=== PATIENT | female | born 2005 | race Caucasian/White ===

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

== ENCOUNTER 2025-05-04 11:57 | Outpatient (CLI) | payer OTHER, SELFPAY ==
--- OUTSIDE RECORDS SUMMARY | 2025-05-04 12:00 | XMS_ITS | Clinical Summary ---
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 Role Phone Unavailable Primary Care Provider Unavailabl e Social History Tobacco Use Types Packs/Day Years Used Date Smoking Tobacco: Never Alcohol Use Standard Drinks/Week Comments No 0 (1 standard drink = 0.6 oz pur e alcohol) Comments Unknown Sex and Gender Information Value Date Recorded Sex Assigned at Not on file Legal Sex Female 6:05 PM EDT Gender Identity Not on file Sexual Orientation Not on file Last Filed Vital Signs Vital Sign Reading Time Taken Comments Blood Pressure - - Pulse - - Temperature - - Respiratory Rate - - Oxygen Saturation - - Inhaled Oxygen Concentration - - Weight 21.3 kg (47 lb) 03/15/2016 10:14 AM EDT Height 119.4 cm (3' 11 ) 03/15/2016 10:14 AM EDT Body Mass Index 14.96 03/15/2016 10:14 AM EDT Plan of Treatment Not on file
--- OUTSIDE RECORDS SUMMARY | 2025-05-04 12:00 | XMS_ITS | Clinical Summary ---
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 Name Role Phone Evelyn Washburn Donell BULL Primary Care Provider [phone] Allergies No known active allergies Medications No known medications Social History Tobacco Use Types Packs/Day Years Used Date Smoking Tobacco: Never Assessed Comments Unknown Sex and Gender Information Value Date Recorded Sex Assigned at Not on file Legal Sex Female 4:01 PM EST Gender Identity Not on file Sexual Orientation Not on file Last Filed Vital Signs Vital Sign Reading Time Taken Comments Blood Pressure 105/86 06/13/2016 4:03 PM EST Pulse 106 06/13/2016 4:03 PM EST Temperature 36.9 C (98.4 F) 06/13/2016 4:03 PM EST Respiratory Rate 20 06/13/2016 5:54 PM EST Oxygen Saturation 99% 06/13/2016 5:54 PM EST Inhaled Oxygen Concentration - - Weight 28.1 kg (62 lb) 06/13/2016 4:03 PM EST Height - - Body Mass Index - - Plan of Treatment Health Maintenance Due Date Last Done Comments Annual Wellness Exam 2008 HPV (1 - 3-dose series) 2020 Meningococcal B Vaccine (1 o f 2 - Standard) 2021 DTaP/TDaP/Td (1 - Tdap) 2024 Hepatitis B Vaccine (1 of 3 - 19+ 3-dose series) 2024 COVID-19 Vaccine ( - 2023-2 5 season) 2025 Influenza Vaccine (#1) 2025 Pneumococcal Vaccine 0-49 Aged Out No longer eligible based on patient's age to complete this topic Insurance [employer] [place] [id number] MDR MDR ESURANCE AA Care Teams Larry Car Operator Relationship Specialty Start Date End Date Evelyn Washburn APRN [address] [address] PCP - General Nurse Practitioner-Pediatrics 06/13/16
[2025-05-04 12:41] LABS: Hematocrit 41.5 % (37.0-47.0); Hemoglobin 14.7 g/dL (12.2-16.2); Immature Granulocytes % 0.2 %; Mean Corpuscular HGB Conc 35.4 g/dL (31.8-35.4); Mean Corpuscular Hemoglobin 33.3 pg (27.0-31.2); Mean Corpuscular Volume 93.9 fl (81-99); Nucleated Red Blood Cells % 0 %; Platelet Count 319 K/mm3 (142-424); Red Blood Count 4.42 M/mm3 (4.20-5.40); Red Cell Distribution Width-SD 43.9 fL; White Blood Count 8.9 K/mm3 (4.5-13.0)
[2025-05-04 13:24] LABS: Alanine Aminotransferase 17 U/L (12-78); Albumin Level 4.9 g/dl (3.5-5.0); Albumin/Globulin Ratio 1.8 (1.1-1.8); Alkaline Phosphatase 43 U/L (38-126); Anion Gap 16.9 mEq/L (5-15); Aspartate Amino Transferase 28 U/L (14-36); Bilirubin,Total 0.9 mg/dl (0.2-1.3); Blood Urea Nitrogen 10 mg/dl (7-17); Calcium 10.1 mg/dl (8.4-10.2); Carbon Dioxide 25 mmol/L (22.0-30.0); Chloride 101 mmol/L (98-107); Creatinine,Serum 0.70 mg/dl (0.52-1.04); Estimated Glomerular Filt Rate 107 ml/min (>60); GFR (African American) 129 ML/MIN (>60); Globulin 2.8 g/dL (1.3-3.2); Glucose 90 mg/dl (74-100); Magnesium 2.0 mg/dl (1.6-2.3); Potassium 3.9 mmoL/L (3.5-5.1); Sodium 139 mmol/L (136-145); Total Protein,Serum 7.7 g/dl (6.3-8.2)
[2025-05-04 13:54] LABS: Thyroid Stimulating Hormone 0.54 uIU/mL (0.465-4.68)
== END 2025-05-04 23:59 | disposition home or self-care (01) ==
LOC: LAB 11:59
PROVIDERS: PCP Nurse Practitioner Family; Visit Provider Nurse Practitioner Family
DX: R00.0 Tachycardia, unspecified (principal)
CPT/HCPCS: 36415; 80053; 83735; 84443; 85025; 93225; 93227

== ENCOUNTER 2025-07-08 15:43 | Outpatient (CLI) | payer OTHER, SELFPAY ==
--- NOTE | 2025-07-08 15:46 | XR_ITS ---
FINAL REPORT CLINICAL HISTORY: left hand pain/injury COMPARISON: None FINDINGS: LEFT HAND Three views demonstrate no acute fracture or dislocation. The visualized joint spaces are normally aligned. The soft tissues are unremarkable. IMPRESSION: No acute process. Reviewed, Interpreted and Dictated by Baljit Gonzalez MD Transcribed by Alberta Padilla Authenticated and [facility]
== END 2025-07-08 23:59 | disposition home or self-care (01) ==
LOC: RAD 15:44
PROVIDERS: PCP Nurse Practitioner Family; Visit Provider Nurse Practitioner Family
DX: S69.92XA Unspecified injury of left wrist, hand and finger(s), initial encounter (principal)
CPT/HCPCS: 73130